=== PATIENT | female | born 2000 | race Caucasian/White ===

== ENCOUNTER 2019-12-21 18:55 | Inpatient (IN) | payer MEDICAID, SELFPAY ==
[2019-12-21 19:10] VITALS: BP 126/78; PULSE 107
[2019-12-21 19:35] VITALS: RESP 16; TEMP 36.4
[2019-12-21] MEDS: miSOPROStol 100 mcg tablet 25 MCG VAGINAL (19:49)
[2019-12-21 20:01] VITALS: BMI 25.0
[2019-12-21 20:13] LABS: Basophils % 0.3 %; Eosinophils # 0.1 10^3/uL (0.0-0.8); Hematocrit 33.2 % (37.0-47.0); Hemoglobin 9.9 g/dL (11.5-15.3); Lymphocytes # 2.3 10^3/uL (1.5-6.5); Lymphocytes % 20.5 %; Mean Corpuscular HGB Conc 29.8 g/dL (30.0-36.0); Mean Corpuscular Hemoglobin 25.8 pg (28.0-34.0); Mean Corpuscular Volume 86.7 fL (81-99); Mean Platelet Volume 12.1 fL (7.4-10.4); Monocytes # 0.7 10^3/uL (0.2-0.9); Monocytes % 5.9 %; Neutrophils # 8.2 10^3/uL (1.8-8.0); Nucleated Red Blood Cells % 0 %; Platelet Count 314 10^3/cmm (130-400); Red Blood Count 3.83 10^6/uL (4.1-5.3); Red Cell Distribution Width 14.7 % (12.1-15.1); White Blood Count 11.4 10^3/uL (4.5-13.0)
[2019-12-21 22:13] VITALS: BP 106/69; PULSE 78
[2019-12-22] VITALS (70 sets, daily range): BP systolic 0–146; BP diastolic 0–99; PULSE 58–126; RESP 15–22; TEMP 36.3–37.6; O2SAT 99–100
[2019-12-22] MEDS: miSOPROStol 100 mcg tablet 25 MCG VAGINAL (03:09)
[2019-12-22] MEDS: fentaNYL 50 mcg/mL INJ 2mL IVP (05:28)
[2019-12-22] MEDS: ondansetron 2 mg/ML SDV 2 mL 4 MG IVP (06:55)
--- NOTE | 2019-12-22 07:20 | ANES.PREANE2 ---
Pre-Anesthetic Assessment Pre-Anesthetic Assessment: Height/Weight: Height 1.68 m Weight 70.307 kg Temp Pulse Resp BP Pulse Ox 99.2 F 66 18 116/69 100 12/22/19 07:45 12/22/19 07:54 12/22/19 07:45 12/22/19 07:54 12/22/19 07:49 Preop Diagnosis: IUP Proposed Procedure: labor epidural Was Beta Katharine taken within 24 hours: N/A Social: Social History: No alcohol and No tobacco Exam: Pre-Anes Outpt Exam: alert, oriented x 3, clear to auscultation bilaterally and regular rate & rhythm Airway: Submandibular: WNL Cervical ROM: WNL MP: 1 Pulmonary: Pulmonary: None reported CV/HEM: CV/HEM: None reported : : None reported Hepatic: Hepatic: None reported GI: GI: None reported Metabolic: Metabolic: None reported Musc/skel: Musc/skel: None reported Neuropsych: Neuropsych: None reported Anesthetic Plan: ASA status: 1 Anesthesia: Anesthesia Evaluation Risk of > 500 ml blood loss (7ml/kg in children): No Meds/Allergies Current Medications: Current Medications Generic Name Dose Route Start Last Admin Trade Name Freq PRN Reason Stop Dose Admin Fentanyl 25 - 100 mcg 12/21/19 19:35 12/22/19 05:28 Sublimaze IVP 25 mcg Q1H PRN Administration SEVERE PAIN Ropivacaine 200 mg in 100 mls @ 13 mls/hr 12/22/19 06:45 12/22/19 07:34 Naropin Premix EPIDURAL 13 mls/hr .Q7H42M RHIANNON Administration Lactated Ringer's 1,000 mls @ 999 m ls/hr 12/22/19 06:45 12/22/19 07:40 Lactated Ringers IV 999 mls/hr .Q1H1M PRN Administration BLEEDING Ondansetron HCl 4 mg 12/21/19 19:35 12/22/19 06:55 Zofran IVP 4 mg Q4H PRN Administration NAUSEA AND VOMITI NG PFSH Anesthesia Female Reproductive History: : 1 Data Anesthesia CBC & Chem 7: 12/21/19 19:30 Other Labs: Laboratory Results - last 48 hr 12/21/19 19:30 WBC 11.4 RBC 3.83 L Hgb 9.9 L Hct 33.2 L MCV 86.7 MCH 25.8 L MCHC 29.8 L RDW 14.7 Plt Count 314 MPV 12.1 H Neut % (Auto) 72.0 Lymph % (Auto) 20.5 [place] % (Auto) 5.9 Eos % (Auto) 1.0 Baso % (Auto) 0.3 Neut # (Auto) 8.2 H Lymph # (Auto) 2.3 [place] # (Auto) 0.7 Eos # (Auto) 0.1 Baso # (Auto) 0.0 Nucleated RBC % (auto) 0 Nucleated RBCs # 0.0 Cardiac Studies: No Data to Display
[2019-12-22] MEDS: lactated ringers 1,000 ML 999 ML IV (07:40)
--- NOTE | 2019-12-22 07:40 | ANES.PROC ---
Anesthesia Procedures Procedure/Date: 12/22/19 Epidural: Time Out Performed: Yes Consents Signed: Procedure Consent Consent: requested by attending/covering physician Lumbar Level: L4-L5 Epidural position: sitting Epidural procedure: sterile prep of area, 1% lidocaine to numb the area, 18 g needle, negative for paresthesia passed, neg for paresthesia, test dose given, 1.5% xylocaine 1:200k epi (5ml), no systemic response, sterile dressing applied, L.U.D. no apparent complications and 0.2% Ropiavacaine @ mls/hr (13)
[2019-12-22] MEDS: dextrose 5%-lactated ringers 1,000 ML 125 ML IV (11:02)
[2019-12-22] MEDS: oxytocin 30 UNIT/500 ML BAG 600 UNIT IV (11:02)
--- NOTE | 2019-12-22 14:00 | PM.DELIVERY ---
Delivery Note: Date of delivery: December 22, 2019 Pre-delivery diagnoses: 19-year-old 1 at 40 weeks estimated gestational age presenting for induction Post-delivery diagnoses: Status post vaginal delivery with vacuum assist Procedure: Vaginal delivery with vacuum assist Op report anesthesia: Epidural Delivering Physician: Vivek Zambrano Estimated blood loss (mL): 200 Pre-Delivery Course: The patient presented to the hospital for induction due to postdates. Cytotec 25 mcg per vagina x2 were placed. The patient had spontaneous rupture of membranes. She progressed to complete without difficulty. She is GBS negative. The remainder of her labs are within normal limits. Delivery: DELIVERY: The patient progressed to complete without difficulty. She delivered a female with a weight of 9 pounds 7 ounces with Apgars of 8, 9. The baby was delivered from the STEPHON position. The baby's mouth and nose were suctioned at the site of the perineum. The baby was then completely delivered and placed on the mother's abdomen. A minute after delivery the cord was then clamped and cut. There was a nuchal cord x1. There was terminal meconium. The placenta and 3 vessel cord were delivered intact shortly thereafter. The perineum and vaginal vault were carefully examined. An abrasion was noted at the posterior aspect of the right labia majora. Both the mother and the baby were in stable condition. Post-Delivery Status: Stable Coding Level of Care Code Acute Inhalation Therapist for Davion Tyson
[2019-12-22] MEDS: miSOPROStol 200 mcg Tablet 800 MCG PR (15:09)
[2019-12-22] MEDS: docusate sodium 100 mg Capsule PO (17:34)
[2019-12-23 00:38] VITALS: BP 120/72; PULSE 64; RESP 16; TEMP 36.8
[2019-12-23 01:20] LABS: Hematocrit 29.1 % (37.0-47.0); Hemoglobin 8.7 g/dL (11.5-15.3); Mean Corpuscular HGB Conc 29.9 g/dL (30.0-36.0); Mean Corpuscular Hemoglobin 26.2 pg (28.0-34.0); Mean Corpuscular Volume 87.7 fL (81-99); Mean Platelet Volume 11.8 fL (7.4-10.4); Platelet Count 257 10^3/cmm (130-400); Red Blood Count 3.32 10^6/uL (4.1-5.3); Red Cell Distribution Width 14.9 % (12.1-15.1); White Blood Count 17.8 10^3/uL (4.5-13.0)
[2019-12-23 04:00] VITALS: BP 100/63; PULSE 59; RESP 18; TEMP 36.7
[2019-12-23] MEDS: benzocaine-menthol 78 gm Canister 1 SPRAY TOPICAL (06:00)
--- NOTE | 2019-12-23 08:07 | P.DS_ITS ---
Discharge Providers PRODUCTION MACHINE TENDER Date of Admission: 12/21/19 18:55 Date of Discharge: 12/23/19 Attending Provider at Admission: Vivek Zambrano MD Attending Provider at Discharge: Vivek Zambrano MD Primary Care Provider: Tani Claros Diagnoses at Discharge Discharge Diagnosis (1) 40 weeks gestation of : Status: Acute (2) Vacuum-assisted vaginal delivery: Status: Acute Reason for Visit Reason for Visit: Induction of labor. Term Hospital Course Hospital Course: The patient arrived to the hospital for induction due to being postdates. She was placed on Cytotec 25 mcg x 2. She had spontaneous rupture of membranes. She had epidural placed. She progressed to complete. When the baby began , the baby's heart tones were in the 60s, and the patient was unable to push the baby out through several contractions. As result I assisted with a vacuum. The patient had an unremarkable delivery otherwise. Her course was also unremarkable. She breast-fed well. Her bleeding was within normal limits. Her pain was well controlled. Information Peripartum Data: Delivery Method: Vaginal Physical Exam Narrative: EXAM NARRATIVE: The patient is alert. She appears comfortable. Her heart has a regular rate and rhythm with no murmurs appreciated. Lungs are clear to auscultation bilaterally. Her fundus is firm and below the umbilicus. Discharge Data Data Completed and Pending: Labs from last 24 hours 12/23/19 01:10 WBC 17.8 H RBC 3.32 L Hgb 8.7 L Hct 29.1 L MCV 87.7 MCH 26.2 L MCHC 29.9 L RDW 14.9 Plt Count 257 MPV 11.8 H Vitals: Last Vital Signs Temp 98.1 F 12/23/19 04:00 Pulse 59 L 12/23/19 04:00 Resp 18 12/23/19 04:00 BP 100/63 12/23/19 04:00 Pulse Ox 99 12/22/19 19:06 Discharge Plan Discharge Patient Disposition: Home, Self-Care Condition: Stable Prescriptions: New ibuprofen 800 mg Tablet 800 mg PO TID Qty: 45 RF: 0 (DME) breast pump Device See Rx Instructions .ROUTE .MEDSUPPLY Qty: 1 RF: 0 -U 106.5-1 mg Capsule 1 cap PO DAILY Qty: 90 RF: 0 ferrous sulfate 325 mg (65 mg iron) tablet 325 mg PO DAILY Qty: 90 RF: 0 Discharge Orders: Discharge Order (Routine); Ordered 12/23/19 Ordered By: Vivek Zambrano Referrals: Vivek Zambrano MD [Physician] - 6 Weeks Discharge Diet: Usual diet Discharge Activity: Limit activity as instructed Discharge Attestations PRODUCTION MACHINE TENDER Time Spent in Discharge Care*: less than 30 min Specific Discharge Activities: Specific discharge activities: educating patient Coding Level of Care Code Acute Server Systems Administrator for Chg Fwd Diagnoses 40 weeks gestation of Z3A.40 Vacuum-assisted vaginal delivery Z37.9
[2019-12-23] MEDS: docusate sodium 100 mg Capsule PO (08:17)
[2019-12-23] MEDS: prenatal vitamin Capsule 1 CAP PO (08:17)
[2019-12-23 10:00] VITALS: BP 102/65; PULSE 75; RESP 16; TEMP 36.8; O2SAT 96
[2019-12-23] MEDS: measles,mumps,rubella pf Vial (w/diluent) 0.5 ML SUBCUT (16:50)
[2019-12-23 17:04] VITALS: BP 112/74; PULSE 86; RESP 16; TEMP 36.3
== END 2019-12-23 17:18 | disposition home or self-care (01) | DRG 807 ==
PROVIDERS: Admitting Provider Family Medicine; Family Provider Nurse Practitioner Family; PCP Nurse Practitioner Family; Visit Provider Family Medicine
DX: O48.0 Post-term pregnancy (principal); Z37.0 Single live birth; Z3A.40 40 weeks gestation of pregnancy; O69.81X0 Labor and delivery complicated by cord around neck, without compression, not applicable or unspecified
CPT/HCPCS: 12345; 36415; 51702; 59025; 59409; 85025; 85027; 90707; 96372; 96374; 96375; J2405; J2795; J3010

== ENCOUNTER 2022-06-20 13:00 | Inpatient (IN) | payer MEDICAID, SELFPAY ==
[2022-06-20] VITALS (80 sets, daily range): BP systolic 98–150; BP diastolic 55–84; PULSE 72–169; RESP 15; TEMP 36.7–37.1; O2SAT 89–100; BMI 25.7
[2022-06-20 15:07] LABS: Basophils # 0.1 10^3/uL (0.0-0.1); Basophils % 0.3 %; Eosinophils # 0.1 10^3/uL (0.0-0.8); Eosinophils % 0.8 %; Hematocrit 39.8 % (37.0-47.0); Lymphocytes # 1.9 10^3/uL (0.8-4.8); Lymphocytes % 13.1 %; Mean Corpuscular HGB Conc 32.7 g/dL (30.0-36.0); Mean Corpuscular Hemoglobin 31.7 pg (28.0-34.0); Mean Corpuscular Volume 97.1 fl (81-99); Mean Platelet Volume 11.7 fL (7.4-10.4); Monocytes % 6.6 %; Neutrophils # 11.45 10^3/uL (1.8-7.7); Neutrophils % 78.9 %; Nucleated Red Blood Cells % 0 %; Platelet Count 254 10^3/cmm (130-400); Red Cell Distribution Width 13.6 % (12.1-15.1); White Blood Count 14.5 10^3/uL (4.0-10.0)
--- NOTE | 2022-06-20 16:23 | P.ANESASSM_ITS ---
Pre-Anesthetic Assessment Height/Weight: Height 1.68 m Weight 72.121 kg Pulse Resp BP Pulse Ox 99 15 114/68 100 06/20/22 16:19 06/20/22 14:44 06/20/22 16:19 06/20/22 16:15 Preop Diagnosis: IUP Familial anesthetic complications: none Was Beta Katharine taken within 24 hours: N/A Was Clonidine taken within 24 hours: N/A Social No alcohol and No tobacco Exam alert, oriented x 3, clear to auscultation bilaterally and regular rate & rhythm Airway Submandibular: within normal limits Cervical ROM: within normal limits Mallampati: Class II Dentition: full History/ROS No significant history except as noted Anesthetic Plan ASA status: 2 Anesthesia: Regional (specify below) (Labor epidural) Medications/Allergies Home Medications Medication Instructions Recorded Confirmed Last Taken Type breast pump #1 ea 12/23/19 Unknown Rx multivitamin no.51-ferrous 1 cap PO DAILY #90 caps 12/23/19 06/20/22 06/19/22 08:00 Rx fumarate 106.5 mg-folic acid 1 mg capsule (-U) Allergies Allergy/AdvReac Type Severity Reaction Status Date / Time amoxicillin Allergy ALGY-Rash Verified 06/20/22 14:06 [facility] Anesthesia Female Reproductive History : 2 Data Anesthesia 06/20/22 14:28 Short CBC 06/20/22 Range/Units 14:28 WBC 14.5 H (4.0-10.0) 10^3/uL Hgb 13.0 (11.5-15.3) g/dL Hct 39.8 (37.0-47.0) % MCV 97.1 (81-99) fl Plt Count 254 (130-400) 10^3/cmm Neut % (Auto) 78.9 % Neut # (Auto) 11.45 H (1.8-7.7) 10^3/uL Cardiac Studies: No Data to Display Anesthesia Procedures Epidural Time Out Performed: Yes Consents Signed: Procedure Consent Consent: requested by attending/covering physician, from patient, risks and benefits reviewed and patient agrees to proceed Lumbar Level: L4-L5 Epidural position: sitting Epidural procedure: sterile prep of area, 1% lidocaine to numb the area, 18 g needle, neg for paresthesia, test dose given, 1.5% xylocaine 1:200k epi, placed PCEA, no systemic response, sterile dressing applied, L.U.D. no apparent complications and 0.2% Ropiavacaine @ mls/hr (13) Additional Comments: DOT at 5cm, cath at 12cm
--- NOTE | 2022-06-20 18:03 | PM.MISC ---
Miscellaneous Note Purpose of Documentation: One-sided epidural, epidural pull back to 9cm and bolused 2mls of Fentanyl and 5mls of 2% lido/epi in epidural with good pain relief.
--- NOTE | 2022-06-20 20:33 | PM.OPHPUD ---
Labor & Delivery H&P Update Date of Procedure: June 20, 2022 Date H&P Performed: 06/19/22 Changes to previous documentation: The patient cervix is 4 cm dilated and 75% effaced with consistent contractions Admission Diagnosis: 21-year-old 2 para 1-0-0-1 at 40 weeks estimated gestational age presenting in active labor Preop diagnosis: Same as admission Planned procedure: Spontaneous vaginal delivery Other information: Patient is a 40-week and 2-day estimated gestational age female who presented to the hospital on active labor. She been began having consistent contractions prior to arrival to the hospital. There was no indication of rupture of membranes. There were no other concerns. Her has been unremarkable. She has had consistent care. There have been no complications. Her due date was based on her last menstrual period. Her blood type is O+. Her antibody screen is negative. Her glucose screen was 111. Her GBS status is negative. She is rubella non-immune. The remainder of her infectious disease profile is within normal limits.
[2022-06-20] MEDS: oxytocin 30 UNIT/500 ML BAG 600 UNIT IV (21:09)
[2022-06-20] MEDS: miSOPROStol 200 mcg Tablet 800 MCG PR (21:26)
--- NOTE | 2022-06-20 21:28 | PM.DELIVERY ---
Delivery Note: Date of delivery: June 20, 2022 Pre-delivery diagnoses: 21-year-old 2 para 1-0-0-1 at 40 weeks estimated gestational age Post-delivery diagnoses: Status post spontaneous vaginal delivery Procedure: Spontaneous vaginal delivery Delivering Physician: Vivek Zambrano Estimated blood loss (mL): 400 Pre-Delivery Course: Patient presented to the hospital in active labor. An epidural was placed. An amniotomy was performed. She progressed to complete without difficulty. Delivery: DELIVERY: The patient progressed to complete without difficulty. She delivered a male with a weight of 9 pounds 14 ounces with Apgars of 9, 10. The baby was delivered from the STEPHON position and placed on the mother's abdomen. The cord was then clamped and cut. There was no nuchal cord. There was no meconium. The placenta and 3 vessel cord were delivered intact shortly thereafter. The perineum and vaginal vault were carefully examined. No lacerations were noted. The mother did have more bleeding than normal. She continued to have a moderate trickle after the delivery of the placenta. She was given 800 mcg of Cytotec. Shortly thereafter her bleeding became minimal. Both the mother and the baby were in stable condition. A&P Assessment and plan (1) 40 weeks gestation of : I Anticipate routine care. (2) Spontaneous vaginal delivery: Coding Level of Care Code Acute Meal Attendant for Chg Fwd Diagnoses 40 weeks gestation of Z3A.40 Spontaneous vaginal delivery O80
[2022-06-21] VITALS (11 sets, daily range): BP systolic 95–116; BP diastolic 54–84; PULSE 68–105; RESP 15–16; TEMP 36.4–37.2; O2SAT 97–99
[2022-06-21] MEDS: prenatal vitamin Capsule 1 CAP PO (09:05)
[2022-06-21] MEDS: docusate sodium 100 mg Capsule PO (09:05)
[2022-06-21] MEDS: ibuprofen 800 mg tablet PO ×3 (09:05→21:16)
[2022-06-21] MEDS: ferrous sulfate EC 325 mg Tablet PO (09:05)
[2022-06-21 09:35] LABS: Hematocrit 33.6 % (37.0-47.0); Hemoglobin 10.8 g/dL (11.5-15.3); Mean Corpuscular HGB Conc 32.1 g/dL (30.0-36.0); Mean Corpuscular Volume 96.6 fl (81-99); Mean Platelet Volume 11.4 fL (7.4-10.4); Platelet Count 224 10^3/cmm (130-400); Red Blood Count 3.48 10^6/uL (4.1-5.3); Red Cell Distribution Width 13.7 % (12.1-15.1); White Blood Count 18.9 10^3/uL (4.0-10.0)
--- NOTE | 2022-06-21 14:50 | ANE.PACU2 ---
Inpatient post-anesthesia follow up: Airway intact: Yes Vital signs: Temperature 97.7 F Pulse Rate 90 Respiratory Rate 15 Blood Pressure 97/66 Pulse Oximetry 97 Oxygen Delivery Me thod Room Air Oxygen Flow Rate Fraction of Inspir ed Oxygen Hydration adequate: Yes Nausea and vomiting: No Pain level: 2 Mental status: Baseline
--- NOTE | 2022-06-21 17:16 | PM.OBGYDC ---
Discharge Providers RESET MERCHANDISER Date of Admission: 06/20/22 13:00 Date of Discharge: 06/21/22 Attending Provider at Admission: Vivek Zambrano MD Attending Provider at Discharge: Vivek Zambrano MD Primary Care Provider: Tani Claros Diagnoses at Discharge Discharge Diagnosis (1) 40 weeks gestation of : Status: Acute (2) Spontaneous vaginal delivery: Status: Acute Reason for Visit Reason for Visit: contractions Hospital Course Hospital Course The patient presented to the hospital in active labor. An epidural was placed. An amniotomy was performed. She progressed to complete without difficulty. She then had an unremarkable delivery of a healthy LGA male infant. She did have some heavy bleeding . She received Cytotec 800 mcg. Her bleeding slowed down and was appropriate for the rest of her stay. Her course was unremarkable otherwise. She had some difficulty with breast-feeding, but towards the end of her hospital stay and improved. Her pain was well controlled. Information Peripartum Data: Infant Delivery Method: Vaginal Physical Exam Narrative: The patient is alert. She appears comfortable. Her heart has a regular rate and rhythm with no murmurs appreciated. Lungs are clear to auscultation bilaterally. Her fundus is firm and below the umbilicus. Urinary Catheter Management: Medley: Cath Placed During This Visit: yes, but has since been removed by the nurse Reason for Continuing Indwelling Catheter: Decision to DC Catheter Urinary Catheter Date of Insertion: 06/20/22 Urinary Catheter Time of Insertion: 17:15 Date Urinary Catheter Removed: 06/20/22 Time Urinary Catheter Discontinued: 20:30 Discharge Data Studies Completed and Pending Laboratory Results WBC 18.9 10^3/uL (4.0-10.0) H 06/21/22 09:10 RBC 3.48 10^6/uL (4.1-5.3) L 06/21/22 09:10 Hgb 10.8 g/dL (11.5-15.3) L 06/21/22 09:10 Hct 33.6 % (37.0-47.0) L 06/21/22 09:10 MCV 96.6 fl (81-99) 06/21/22 09:10 MCH 31.0 pg (28.0-34.0) 06/21/22 09:10 MCHC 32.1 g/dL (30.0-36.0) 06/21/22 09:10 RDW 13.7 % (12.1-15.1) 06/21/22 09:10 Plt Count 224 10^3/cmm (130-400) 06/21/22 09:10 MPV 11.4 fL (7.4-10.4) H 06/21/22 09:10 Neut % (Auto) 78.9 % 06/20/22 14:28 Lymph % (Auto) 13.1 % 06/20/22 14:28 [place] % (Auto) 6.6 % 06/20/22 14:28 Eos % (Auto) 0.8 % 06/20/22 14:28 Baso % (Auto) 0.3 % 06/20/22 14:28 Neut # (Auto) 11.45 10^3/uL (1.8-7.7) H 06/20/22 14:28 Lymph # (Auto) 1.9 10^3/uL (0.8-4.8) 06/20/22 14:28 [place] # (Auto) 1.0 10^3/uL (0.2-0.9) H 06/20/22 14:28 Eos # (Auto) 0.1 10^3/uL (0.0-0.8) 06/20/22 14:28 Baso # (Auto) 0.1 10^3/uL (0.0-0.1) 06/20/22 14:28 Nucleated RBC % (auto) 0 % 06/20/22 14:28 Nucleated RBCs # 0.0 /100WBC 06/20/22 14:28 Vitals Last Vital Signs Temp 97.7 F 06/21/22 16:00 Pulse 79 06/21/22 16:00 Resp 15 06/21/22 04:15 BP 95/63 06/21/22 16:00 Pulse Ox 97 06/21/22 16:00 O2 Del Method 06/21/22 16:00 Discharge Plan Discharge Patient Disposition: Home Condition: Stable Prescriptions: New ibuprofen 800 mg Tablet 800 mg PO TID Qty: 45 0RF Continued (DME) breast pump Device See Rx Instructions .ROUTE .MEDSUPPLY Qty: 1 0RF Rx Instructions: As directed -U 106.5-1 mg Capsule 1 cap PO DAILY Qty: 90 0RF Discharge Orders: Discharge Order (Routine); Ordered 06/21/22 Ordered By: Vivek Zambrano Referrals: Vivek Zambrano MD [Physician] - 6 Weeks Discharge Diet: Usual diet Discharge Activity: Limit activity as instructed Patient Instructions: Opioid Safety Discharge Attestations RESET MERCHANDISER Time Spent in Discharge Care*: less than 30 min Coding Level of Care Code Acute Retail Cashier Associate for Chg Fwd Diagnoses 40 weeks gestation of Z3A.40 Spontaneous vaginal delivery O80
[2022-06-21] MEDS: measles,mumps,rubella pf Vial (w/diluent) 0.5 ML SUBCUT (21:16)
== END 2022-06-21 22:11 | disposition home or self-care (01) | DRG 806 ==
LOC: OPOB 13:59 → OBGYN 13:59
PROVIDERS: Admitting Provider Family Medicine; Family Provider Nurse Practitioner Family; PCP Nurse Practitioner Family; Visit Provider Family Medicine
DX: O48.0 Post-term pregnancy (principal); O72.1 Other immediate postpartum hemorrhage; Z37.0 Single live birth; Z3A.40 40 weeks gestation of pregnancy
CPT/HCPCS: 12345; 36415; 51702; 59025; 59409; 85025; 85027; 90707; 96372; 96374; 98960; 99211; J2590; J3010